=== PATIENT | male | born 1955 | race Two or more races ===

== ENCOUNTER 2017-04-17 13:17 | Inpatient (IN) | payer MEDICAID ==
[~2017-04-17] VITALS: Ht 167.6 cm; Wt 47.4 kg
[~2017-04-17 13:17] MED LIST: AMIN30LI27 PO; AMLO10TA2 PO; BLOO-129 IN; CALC-838 PO; CLON0.1T PO; DOCU-141 PO; DOXA4TAB2 PO; FERR325T24 PO; FOLI1TAB16 PO; GEL90GEL2 TP; GEMF600T3 PO; HYDR-4077 PO; HYDR-552 PO; INSU100V SQ; LATA2.5D2 EACHEYE; LEVO50TA8 PO; MEGE400O4 PO; MIRT45TA5 PO; OMEP40CA37 PO; TYL2T PO; VIT1TABL46 PO; VITA113.3 TP; ZINC30OI4 TP; [UNRECOGNIZED DRUG - CODE] PO
--- NOTE | 2017-04-17 13:35 | NUR ---
GUY TOMAS FROM [facility] FOR HYPOTENSION AND MORE ALTERED THAN USUAL. PATIENT IS CURRENTLY A/OX 1. BREATHING EVEN AND UNLABORED. NO SOB, NAD. SBP IN THE 90'S. PATIENT HAS HD CATH ON RCW. SAFETY AND COMFORT MEASURES IN PLACE, AT BEDSIDE FOR EVAL.
--- NOTE | 2017-04-17 13:40 | NUR ---
NEW IV STARTED ON LFA, 20 G. BLOOD DRAWN AND SENT TO LAB. IVF STARTED PER MD ORDERS.
[2017-04-17 13:44] LABS: BASOPHILS # (AUTO) 0.3 /CMM (0.0-0.2); BASOPHILS % (AUTO) 2.3 % (0.0-2.0); EOSINOPHILS % (AUTO) 0.3 % (0.0-6.0); HEMATOCRIT 33 % (39-51); HEMOGLOBIN 11.4 g/dL (13.5-17.5); LYMPHOCYTES # (AUTO) 1.7 /CMM (0.8-4.8); LYMPHOCYTES % (AUTO) 14.9 % (20.0-44.0); MEAN CORPUSCULAR HEMOGLOBIN 30 PG (26.0-33.0); MEAN CORPUSCULAR HGB CONC 35 g/dl (31.0-36.0); MEAN CORPUSCULAR VOLUME 87 fL (80-96); MONOCYTES # (AUTO) 0.5 /CMM (0.1-1.30); MONOCYTES % (AUTO) 4.3 % (2.0-12.0); NEUTROPHILS # (AUTO) 8.7 /CMM (1.8-8.9); NEUTROPHILS % (AUTO) 78.2 % (43.0-81.0); PLATELET COUNT (AUTO) 193 /CMM (150-450); RDW COEFFICIENT OF VARIATION 15.2 (11.5-15.0); RED BLOOD CELL COUNT(AUTO) 3.74 MIL/uL (4.5-6.0); WHITE BLOOD COUNT (AUTO) 11.2 K/uL (4.3-11.0)
--- NOTE | 2017-04-17 13:45 | NUR ---
QUALITY CONTROL CHECKER AT BEDSIDE.
[2017-04-17 13:53] LABS: CALCIUM, SERUM 10.8 mg/dL (8.5-10.1); CARBON DIOXIDE 25 mmol/L (21-32); CHLORIDE 105 mmol/L (98-107); CREATININE 2.9 mg/dL (0.6-1.3); GLUCOSE 94 mg/dL (74-106); SODIUM SERUM 138 mmol/L (136-145); UREA NITROGEN, BLOOD 15 mg/dL (7-18)
[2017-04-17 14:00] LABS: ALANINE AMINOTRANSFERASE 7 U/L (12-78); ALBUMIN 1.9 g/dL (3.4-5.0); ALKALINE PHOSPHATASE 80 U/L (46-116); ASPARTATE AMINOTRANSFERASE 15 U/L (15-37); BILIRUBIN,DIRECT 0.2 mg/dL (0.0-0.2); BILIRUBIN,TOTAL 0.4 mg/dL (0.2-1.0); TOTAL PROTEIN, SERUM 6.1 g/dL (6.4-8.2)
[2017-04-17] MEDS ORDERED: IV NS 0.9% 1,000 ML BAG IV ONE (14:00)
[2017-04-17 14:01] LABS: INR 1.64 (0.85-1.15); TROPONIN I < 0.017 ng/mL (0.00-0.056)
--- NOTE | 2017-04-17 14:33 | NUR ---
PATIENT DOES NOT PRODUCE URINE PER EMT UPON TRANSFER, AWARE, STATING NO NEED TO CATH PATIENT FOR URINE.
[2017-04-17] MEDS ORDERED: NA P133E33 RC (14:38)
[2017-04-17] MEDS ORDERED: POLY15DR40 EACHEYE (14:38)
[2017-04-17] MEDS ORDERED: BRIM5DRO EACHEYE (14:38)
[2017-04-17] MEDS ORDERED: CHOL50004 PO (14:38)
[2017-04-17] MEDS ORDERED: MELA3TAB PO (14:38)
[2017-04-17] MEDS ORDERED: NORT25CA5 PO (14:38)
[2017-04-17] MEDS ORDERED: SEVE800T8 PO (14:38)
[2017-04-17] MEDS ORDERED: LOPE2CAP40 PO (14:38)
[2017-04-17] MEDS ORDERED: VITA113.3 TP (14:40)
[2017-04-17] MEDS ORDERED: MENT113O6 TP (14:40)
[2017-04-17 15:13] LABS: APPEARANCE,URINE Clear (CLEAR); BILIRUBIN,URINE Negative (NEGATIVE); BLOOD, URINE Trace-lysed Ery/uL (NEGATIVE); COLOR,URINE Yellow (YELLOW); KETONES,URINE Negative (NEGATIVE); LEUKOCYTE ESTERASE ,URINE Small (NEGATIVE); NITRITE, URINE Negative (NEGATIVE); PROTEIN,URINE Negative (NEGATIVE); UGLUCOSE Negative (NEGATIVE); UROBILINOGEN,URINE 0.2 EU/dL (0.2)
[2017-04-17 15:35] LABS: BACTERIA,URINE Few /HPF (None Seen); SQUAMOUS EPITHELIAL CELL,UR Few /HPF (None Seen)
[2017-04-17] MEDS ORDERED: LEVOFLOXACIN 500 MG /D5W 100ML 500 MG/100 ML PIGGYBACK IV ONE (16:00)
[2017-04-17] MEDS ORDERED: LEVOFLOXACIN 500 MG /D5W 100ML 100 ML IV ONE (16:07)
--- NOTE | 2017-04-17 16:22 | NUR ---
TELE 325-2
--- NOTE | 2017-04-17 16:23 | NUR ---
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
--- NOTE | 2017-04-17 17:19 | NUR ---
REPORT GIVEN TO RNMACRINA FOR LUPE UPON ADMISSION. PATIENT GOING TO ROOM 326-2.
[2017-04-17] MEDS ORDERED: NA PHOS,M-B/NA PHOS,DI-BA 1 EA ENEMA RC PRN (17:30)
[2017-04-17] MEDS ORDERED: LOPERAMIDE HCL (2 MG CAP) 2 MG CAPSULE PO PRN (17:30)
[2017-04-17] MEDS ORDERED: CALCIUM CARBONATE 500 MG TAB.CHEW PO PRN (18:00)
[2017-04-17] MEDS: PROSOURCE / PROSTAT (PYXIS) 30 ML UDC PO SCH (18:00)
[2017-04-17] MEDS: BRIMONIDINE TARTRATE OPHT SOLN 5 ML BOTTLE EACHEYE SCH (18:00)
--- NOTE | 2017-04-17 18:04 | NUR ---
RN NOTE PATIENT RECEIVED FROM [facility]. PATIENT IS ALERT AND ORIENTED x1. NO FACIAL GRIMACING NOTED FOR PAIN. NO SOB OR DISTRESS NOTED. AWAITING MD ORDERS. PO MEDICATIONS HELD DUE TO POSSIBLE ASPIRATION FROM ALTERED MENTAL STATUS. WILL ENDORSE TO MOTORCYCLE BUILDER NURSE FOR LUPE Addendum: 04/17/17 at 1835 by MACRINA GREEN RN PATIENT MEDICATIONS HELD DUE TO RISK FOR ASPIRATION
[2017-04-17] MEDS: VITAMINS A AND D 56.7 GM TUBE TP SCH (18:08)
[2017-04-17] MEDS: POLYVINYL ALCOHOL 15 ML BOTTLE EACHEYE SCH (18:08)
--- NOTE | 2017-04-17 18:10 | NUR ---
PATIENT TRANSPORTED TO [facility] VIA ACLS PROTOCOL. RNMACRINA TO PROVIDE LUPE.
[2017-04-17] MEDS: CHOLECALCIFEROL 1,000 UNIT TABLET (VIT D3) PO SCH (18:30)
[2017-04-17 19:45] VITALS: BP 103/62
--- NOTE | 2017-04-17 19:45 | NUR ---
RN NOTES ADMITTED A 88 YEARS OLD MALE, PT WITH PRIMARY DIAGNOSIS OF SEPSIS UNDER DR SUTTON. PT IS ALERT AND ORIENTED X2, DENIES PAIN, NAUSEA AND VOMITING. VITAL SIGNS STABLE, BP AT LOW SIDE. PT IS BLIND ON BOTH EYES. SKIN AND BODY ASSESSMENT DONE WITH PICTURES TAKEN AND FILED IN THE CHART. PT IS CONTRACTED ON BOTH LOWER EXTREMITY WITH WEAKNESS ON LEFT SIDE. LISA CATH IN RIGHT UPPER CHEST WALL INTACT WITH DRESSING CLEAN AND DRY. IV ACCESS ON LEFT FORE ARM PATENT AND INTACT. PT IS ANGRY AND WITHDRAWN WHEN ASKS QUESTION. KEPT COMFORTABLE AND ATTENDED. SAFETY MEASURES AND FALL PRECAUTION OBSERVED WITH CALL LIGHT WITH IN REACH. WILL CONTINUE TO MONITOR PT.
[2017-04-17] MEDS ORDERED: LEVOFLOXACIN 500 MG /D5W 100ML 500 MG in PREMIX 1 EA IV ONE (20:00)
--- NOTE | 2017-04-17 20:00 | NUR ---
RN NOTES SCHEDULED LEVAQUIN 250 MG IVPB AT 2000 NOT ADMINISTERED. LEVAQUIN 500MG IN D5W IVPB GIVEN IN ER AT 1610.
[2017-04-17] MEDS: DOXAZOSIN MESYLATE (4 MG) 4 MG TABLET PO SCH (22:00)
[2017-04-17] MEDS: LATANOPROST EYE DROP 0.005% 2.5 ML BOTTLE EACHEYE SCH (22:34)
[2017-04-17] MEDS: NORTRIPTYLINE HCL 25 MG CAPSULE PO SCH (22:35)
[2017-04-18] VITALS: BP 107/69
[2017-04-18] MEDS ORDERED: ONDANSETRON HCL/PF 4 MG/2 ML VIAL IVP PRN
[2017-04-18] MEDS ORDERED: MAGNESIUM HYDROXIDE 30 ML UDC PO PRN
[2017-04-18] MEDS ORDERED: HYDROCODONE/APAP 5/325MG 1 EACH TABLET PO PRN
[2017-04-18] MEDS ORDERED: *INSULIN REGULAR(HUMULIN R)HUM 100 UNIT/ML VIAL SQ PRN
[2017-04-18] MEDS ORDERED: INSULIN REGULAR, HUMAN 100 UNIT/ML 3 ML VIAL SQ PRN
[2017-04-18] MEDS ORDERED: MAG HYDROX/AL HYDROX/SIMETH 30 ML UDC PO PRN
[2017-04-18] MEDS ORDERED: ACETAMINOPHEN 325 MG TABLET PO PRN
[2017-04-18] MEDS ORDERED: DEXTROSE 50%-WATER 50 ML DISP.SYRIN IV PRN
[2017-04-18] MEDS ORDERED: Z GUARD REMEDY 2 OZ OINT TP PRN
--- NOTE | 2017-04-18 01:20 | NUR ---
RN NOTES PT HEART RATE IN MONITOR IS AT 140'S, STAT EKG DONE. PT DENIES ANY PAIN, VERBALIZING HE'S COLD AND WANTS HIS HEAD COVERED WITH BLANKET. VITAL SIGNS BP 112/75, TEMP 98.7, RR18, BS 110MG/DL, O2SAT 95% AT ROOM AIR. WILL CONTINUE TO MONITOR.
--- NOTE | 2017-04-18 01:21 | NUR ---
RN NOTES DR SUTTON MADE AWARE WITH ORDER TO GIVE CARDIZEM 10MG IV Q6H PRN FOR HR >110. PT MADE AWARE. NOTED AND CARRIED OUT. WILL CONTINUE TO MONITOR PT.
[2017-04-18] MEDS ORDERED: DILTIAZEM HCL 25 MG IV ONE (01:47)
--- NOTE | 2017-04-18 01:50 | NUR ---
RN NOTES UNABLE TO SCAN VIAL OF CARDIZEM, DILTIAZEM HCL INJ 25MG/5ML VIAL TAKEN FROM [facility], 2 ML GIVEN TO THE PT IVP. WILL CONTINUE TO MONITOR PT.
[2017-04-18] MEDS ORDERED: DILTIAZEM HCL 50 MG IV IV PRN (02:00)
[2017-04-18] MEDS: LEVOTHYROXINE SODIUM 50 MCG TABLET PO SCH (06:48)
[2017-04-18] MEDS: BLOOD SUGAR DIAGNOSTIC 1 EACH STRIP VI SCH ×4 (06:50→21:51)
--- NOTE | 2017-04-18 07:00 | NUR ---
RN NOTES RECEIVED PATIENT IN BED ALERT ORIENTED X2. NO ACUTE DISTRESS NOTED. NO SOB NOTED. BREATHING UNLABORED. IV ACCESS PATENT AND INTACT, NO REDNESS OR SWELLING NOTED. RCW DIALYSIS ACCESS WITH DRESSING. HOB ELEVATED. SAFETY MEASURES IN PLACE. CALL LIGHT WITHIN REACH. WILL CONTINUE TO MONITOR ACCORDINGLY.
--- NOTE | 2017-04-18 07:30 | NUR ---
RN NOTES LATEST VITAL SIGNS TAKEN BP 90/64, HR 111, TEMP 98.6, RR 18, 02SAT 97% AT ROOM AIR, BS 108 MG/DL. TELEMONITOR READS SINUS TACH AT 112. PT EASILY AROUSABLE, DENIES PAIN, NAUSEA AND VOMITING. TURNED AND REPOSITIONED SCHEDULED Q2H. KEPT CLEAN AND DRY. SAFETY MEASURES AND FALL PRECAUTION OBSERVED. WILL ENDORSE TO MORNING RN FOR CONTINUITY OF CARE.
[2017-04-18 07:56] LABS: HEMATOCRIT 36 % (39-51); LYMPHOCYTES # (AUTO) 0.3 /CMM (0.8-4.8); LYMPHOCYTES % (AUTO) 1.1 % (20.0-44.0); MEAN CORPUSCULAR HEMOGLOBIN 30 PG (26.0-33.0); MEAN CORPUSCULAR HGB CONC 34 g/dl (31.0-36.0); MEAN CORPUSCULAR VOLUME 88 fL (80-96); MONOCYTES # (AUTO) 0.2 /CMM (0.1-1.30); MONOCYTES % (AUTO) 0.6 % (2.0-12.0); NEUTROPHILS # (AUTO) 27.6 /CMM (1.8-8.9); NEUTROPHILS % (AUTO) 98.3 % (43.0-81.0); PLATELET COUNT (AUTO) 200 /CMM (150-450); RDW COEFFICIENT OF VARIATION 16.1 (11.5-15.0); RED BLOOD CELL COUNT(AUTO) 4.06 MIL/uL (4.5-6.0); WHITE BLOOD COUNT (AUTO) 28.1 K/uL (4.3-11.0)
[2017-04-18 08:00] VITALS: BP 92/69
[2017-04-18 08:04] LABS: CALCIUM, SERUM 10.6 mg/dL (8.5-10.1); CREATININE 3.4 mg/dL (0.6-1.3); PHOSPHORUS 2.1 mg/dL (2.5-4.9); POTASSIUM 2.9 mmol/L (3.5-5.1)
[2017-04-18] MEDS: AMLODIPINE BESYLATE 10 MG TABLET PO SCH (09:00)
--- NOTE | 2017-04-18 09:00 | NUR ---
RN NOTES SEEN AND EVALUATED BY EDGARDO ROSENBAUM WITH NEW ORDERS MADE. NOTED AND CARRIED OUT.
[2017-04-18] MEDS: PROSOURCE / PROSTAT (PYXIS) 30 ML UDC PO SCH (09:28)
[2017-04-18] MEDS: POLYVINYL ALCOHOL 15 ML BOTTLE EACHEYE SCH ×3 (09:28→17:27)
[2017-04-18] MEDS: CHOLECALCIFEROL 1,000 UNIT TABLET (VIT D3) PO SCH (09:29)
[2017-04-18] MEDS: FERROUS SULFATE (325 MG) 325 MG/TAB TABLET PO SCH (09:29)
[2017-04-18] MEDS: FOLIC ACID 1 MG TABLET PO SCH (09:29)
[2017-04-18] MEDS: VIT B CMPLX 3/FA/VIT C/BIOTIN 1 TAB TABLET PO SCH (09:29)
[2017-04-18] MEDS: SEVELAMER CARBONATE 800 MG TABLET PO SCH ×2 (09:38→12:12)
[2017-04-18] MEDS: VITAMINS A AND D 56.7 GM TUBE TP SCH (09:49)
[2017-04-18 10:41] LABS: BAND % (MANUAL) 4 % (0.0-5.0); LYMPHOCYTES % (MANUAL) 3 % (16-48); MONOCYTES % (MANUAL) 1 % (0-11.0); NEUTROPHILS % (MANUAL) 92 (42-76)
[2017-04-18] MEDS: BRIMONIDINE TARTRATE OPHT SOLN 5 ML BOTTLE EACHEYE SCH ×2 (10:50→17:26)
[2017-04-18 12:00] VITALS: BP 105/76
[2017-04-18] MEDS: ASPIRIN EC 81 MG TABLET.DR PO SCH (12:12)
[2017-04-18] MEDS ORDERED: POTASSIUM PHOSPHATE MM 15 MMOL in IV D5W 250 ML IV SCH (13:00)
[2017-04-18] MEDS: POTASSIUM PHOSPHATE MM 7.5 MMOL in IV D5W 100 ML IV SCH ×2 (15:43→20:05)
[2017-04-18 16:00] VITALS: BP 100/70
[2017-04-18] MEDS ORDERED: DILTIAZEM HCL 25 MG IV IV PRN (16:13)
[2017-04-18] MEDS ORDERED: Medication Not On Formulary EA (Melatonin 3 MG) PO SCH (17:00)
[2017-04-18] MEDS: LEVOFLOXACIN 250 MG /D5W 50 ML 250 MG in PREMIX 1 EA IV SCH (18:53)
--- NOTE | 2017-04-18 19:00 | NUR ---
RN NOTES PATIENT IN BED ALERT ORIENTED X2, RESPOND TO QUESTIONS WITH YES OR NO. NO ACUTE DISTRESS NOTED. NO SOB NOTED. BREATHING UNLABORED. IV ACCESS PATENT AND INTACT, NO REDNESS OR SWELLING NOTED. RCW DIALYSIS ACCESS WITH DRESSING. DUE MEDICATIONS GIVEN, NO ASE NOTED. REFUSED ACCU CHECK BEFORE DINNER DESPITE OF EXPLANATION OF RISK AND BENEFITS. NEEDS ATTENDED. HOB ELEVATED. SAFETY MEASURES IN PLACE. CALL LIGHT WITHIN REACH. ENDORSED TO NIGHT NURSE FOR CONTINUITY OF CARE.
--- NOTE | 2017-04-18 19:30 | NUR ---
ELECTRIC METER TESTER SHOP NOTE RECEIVED PATIENT FROM DAY SHIFT, PATIENT IS ALERT AND ORIENTEDX2,BLIND, NO S/S OF RESPIRATORY DISTRESS OR PAIN AT THIS TIME. BOTH EYES ARE BLIND, CONTRACTED BLE WITH WEAKNESS NOTED. LISA CATH IN RIGHT UPPER CHEST WALL INTACT, DRESSING C/D/I. IV ON LEFT FA IS PATENT AND INTACT, HL ONLY. SRX2, BED IN LOW POSITION, CALL LIGHT WITHIN REACH, WILL CONTINUE TO MONITOR PATIENT.
[2017-04-18 20:00] VITALS: BP 87/59
[2017-04-18] MEDS ORDERED: LEVOFLOXACIN 250 MG /D5W 50 ML 250 MG in PREMIX 1 EA IV SCH (20:00)
[2017-04-18] MEDS: DOXAZOSIN MESYLATE (4 MG) 4 MG TABLET PO SCH (21:42)
[2017-04-18] MEDS: LATANOPROST EYE DROP 0.005% 2.5 ML BOTTLE EACHEYE SCH (21:46)
[2017-04-18] MEDS: NORTRIPTYLINE HCL 25 MG CAPSULE PO SCH (21:46)
[2017-04-19] VITALS (7 sets, daily range): BP systolic 8–104; BP diastolic 57–69
--- NOTE | 2017-04-19 06:36 | NUR ---
PART TIME NOTE PATIENT IS NONCOMPLIANT WITH ACCUCHECK, KEPT MOVING HIS ARMS, AND SAID 'NO.' WILL ENDORSE TO DAY SHIFT TO F/U.
--- NOTE | 2017-04-19 06:59 | NUR ---
MEDICAL INSURANCE VERIFIER NOTE PATIENT IS RESTING IN BED, GETTING HD AT THIS TIME. NO ACUTE DISTRESS NOTED THROUGHOUT THE SHIFT EXCEPT NONCOMPLIANCE OF MED. TELE MONITOR SR 63. WILL ENDORSE TO DAY SHIFT FOR LUPE.
[2017-04-19 07:25] LABS: BASOPHILS % (AUTO) 0.3 % (0.0-2.0); EOSINOPHILS # (AUTO) 0.1 /CMM (0.0-0.7); EOSINOPHILS % (AUTO) 0.7 % (0.0-6.0); HEMATOCRIT 27 % (39-51); LYMPHOCYTES # (AUTO) 1.9 /CMM (0.8-4.8); LYMPHOCYTES % (AUTO) 13.1 % (20.0-44.0); MEAN CORPUSCULAR HEMOGLOBIN 29 PG (26.0-33.0); MEAN CORPUSCULAR HGB CONC 34 g/dl (31.0-36.0); MEAN CORPUSCULAR VOLUME 88 fL (80-96); MONOCYTES # (AUTO) 0.7 /CMM (0.1-1.30); MONOCYTES % (AUTO) 4.8 % (2.0-12.0); NEUTROPHILS # (AUTO) 11.7 /CMM (1.8-8.9); NEUTROPHILS % (AUTO) 81.1 % (43.0-81.0); PLATELET COUNT (AUTO) 154 /CMM (150-450); RDW COEFFICIENT OF VARIATION 17.1 (11.5-15.0); RED BLOOD CELL COUNT(AUTO) 3.07 MIL/uL (4.5-6.0); WHITE BLOOD COUNT (AUTO) 14.4 K/uL (4.3-11.0)
[2017-04-19] MEDS: BLOOD SUGAR DIAGNOSTIC 1 EACH STRIP VI SCH ×4 (07:30→22:00)
[2017-04-19 07:32] LABS: CALCIUM, SERUM 9.1 mg/dL (8.5-10.1); CREATININE 3.2 mg/dL (0.6-1.3); POTASSIUM 3.3 mmol/L (3.5-5.1)
[2017-04-19] MEDS ORDERED: ALBUMIN 25% 25 GM in PREMIX 1 EA IV PRN (08:00)
--- NOTE | 2017-04-19 08:25 | NUR ---
TELEHEALTH CASE MANAGER/OPENING NOTES RECEIVED PT. IN BED A&OX2, RECEIVING HEMODIALYSIS. PT. IS BLIND IN BOTH EYES. BREATHING UNLABORED, AND EVENLY ON ROOM AIR. NO S/S 0F ACUTE DISTRESS. ALBUMIN WAS GIVEN, AND IV FLUIDS. BED IS IN LOWEST, AND LOCKED POSITION. 2 SIDE RAILS UP. CALL LIGHT IS WITHIN REACH, AND ALL NEEDS MET. WILL CONTINUE TO ASSESS AND MONITOR.
[2017-04-19] MEDS: PROSOURCE / PROSTAT (PYXIS) 30 ML UDC PO SCH (09:00)
[2017-04-19] MEDS: AMLODIPINE BESYLATE 10 MG TABLET PO SCH (09:00)
--- NOTE | 2017-04-19 09:00 | NUR ---
RN NOTES PT. RECEIVED HEMODIALYSIS AND WAS GIVEN AN ADDITIONAL 600 CC OF NORMAL SALINE IV FLUIDS DUE TO PT.'S LOW BLOOD PRESSURE ON HD. VITAL'S POST DIALYSIS BP 116/74, PULE 70, TEMP. 97.5.
[2017-04-19] MEDS: VITAMINS A AND D 56.7 GM TUBE TP SCH (10:13)
[2017-04-19] MEDS: POLYVINYL ALCOHOL 15 ML BOTTLE EACHEYE SCH ×3 (10:13→17:21)
[2017-04-19] MEDS: BRIMONIDINE TARTRATE OPHT SOLN 5 ML BOTTLE EACHEYE SCH ×2 (10:13→17:21)
[2017-04-19] MEDS: LEVOTHYROXINE SODIUM 50 MCG TABLET PO SCH (10:14)
[2017-04-19] MEDS: VIT B CMPLX 3/FA/VIT C/BIOTIN 1 TAB TABLET PO SCH (10:15)
[2017-04-19] MEDS: FERROUS SULFATE (325 MG) 325 MG/TAB TABLET PO SCH (10:15)
[2017-04-19] MEDS: FOLIC ACID 1 MG TABLET PO SCH (10:15)
[2017-04-19] MEDS: FAMOTIDINE (20 MG) 20 MG TABLET PO SCH (10:16)
[2017-04-19] MEDS: ASPIRIN EC 81 MG TABLET.DR PO SCH (10:16)
[2017-04-19] MEDS: CHOLECALCIFEROL 1,000 UNIT TABLET (VIT D3) PO SCH (10:16)
[2017-04-19] MEDS: LEVOFLOXACIN 250 MG /D5W 50 ML 250 MG in PREMIX 1 EA IV SCH (18:37)
--- NOTE | 2017-04-19 19:25 | NUR ---
RN CLOSING NOTES PT. IS IN BED A&OX2, PT. IS BLIND IN BOTH EYES. BREATHING UNLABORED, AND EVENLY ON ROOM AIR. NO S/S 0F ACUTE DISTRESS. IV ANTIBIOTICS RUNNING. BED IS IN LOWEST, AND LOCKED POSITION. 2 SIDE RAILS UP. CALL LIGHT IS WITHIN REACH, AND ALL NEEDS MET. WILL ENDORSE REPORT TO NURSE.
--- NOTE | 2017-04-19 19:35 | NUR ---
MS RN OPENING NOTES RECEIVED PT IN BED ALERT, AWAKE,VERBALLY RESPONSIVE.ON ROOM AIR, RESPIRATIONS EVEN, UNLABORED, NO APPARENT DISTRESS NOTED. DENIES ANY PAIN OR DISCOMFORT AT THIS TIME. IV SITE LFA INTACT, PATENT. CALL LIGHT WITHIN REACH. ATTENDED ALL NEEDS. BED LOCKED IN LOWEST POSITION. WILL CONTINUE TO MONITOR ACCORDINGLY.
[2017-04-19] MEDS: NORTRIPTYLINE HCL 25 MG CAPSULE PO SCH (21:54)
[2017-04-19] MEDS: DOXAZOSIN MESYLATE (4 MG) 4 MG TABLET PO SCH (21:54)
[2017-04-19] MEDS: LATANOPROST EYE DROP 0.005% 2.5 ML BOTTLE EACHEYE SCH (22:00)
--- NOTE | 2017-04-19 22:00 | NUR ---
MS RN NOTE PT REFUSED ACCU CHECK OFFERED X3 EXPLAINED BENEFITS, REFUSED. ALERT, AWAKE, VERBALLY RESPONSIVE, DENIES ANY DISCOMFORT AT THIS TIME. WILL CONTINUE TO MONITOR.
[2017-04-20] MEDS: BLOOD SUGAR DIAGNOSTIC 1 EACH STRIP VI SCH ×3 (06:08→17:02)
--- NOTE | 2017-04-20 06:41 | NUR ---
MS RN CLOSING NOTES PT IN BED AWAKE, VERBALLY RESPONSIVE, DENIES ANY PAIN OR DISCOMFORT AT THIS TIME. RESPIRATIONS EVEN, UNLABORED. REFUSED ACCU CHECK, OFFERED X3 EXPLAINED BENEFITS, REFUSED. CALL LIGHT WITHIN REACH. ATTENDED ALL NEEDS. WILL CONTINUE TO MONITOR.
--- NOTE | 2017-04-20 07:15 | NUR ---
RN NOTES PT IS LAYING DOWN IN BED, SHEETS OVER HIS FACE, RESTING. PT ON RA, RESPIRATIONS ARE EVEN AND UNLABORED. IV ON LFA INTACT AND SL. SAFETY MEASURES ARE IN PLACE, CALL LIGHT IS IN REACH. WILL CONTINUE TO MONITOR.
[2017-04-20 08:00] VITALS: BP 102/65
[2017-04-20] MEDS: POLYVINYL ALCOHOL 15 ML BOTTLE EACHEYE SCH ×3 (08:30→16:58)
[2017-04-20] MEDS: BRIMONIDINE TARTRATE OPHT SOLN 5 ML BOTTLE EACHEYE SCH ×2 (08:30→16:58)
[2017-04-20] MEDS: CHOLECALCIFEROL 1,000 UNIT TABLET (VIT D3) PO SCH (08:30)
[2017-04-20] MEDS: PROSOURCE / PROSTAT (PYXIS) 30 ML UDC PO SCH (08:30)
[2017-04-20] MEDS: LEVOTHYROXINE SODIUM 50 MCG TABLET PO SCH (08:30)
[2017-04-20] MEDS: ASPIRIN EC 81 MG TABLET.DR PO SCH (08:30)
[2017-04-20] MEDS: FOLIC ACID 1 MG TABLET PO SCH (08:30)
[2017-04-20] MEDS: FERROUS SULFATE (325 MG) 325 MG/TAB TABLET PO SCH (08:31)
[2017-04-20] MEDS: VIT B CMPLX 3/FA/VIT C/BIOTIN 1 TAB TABLET PO SCH (08:31)
[2017-04-20] MEDS: FAMOTIDINE (20 MG) 20 MG TABLET PO SCH (08:31)
[2017-04-20] MEDS: VITAMINS A AND D 56.7 GM TUBE TP SCH (08:31)
[2017-04-20] MEDS: AMLODIPINE BESYLATE 10 MG TABLET PO SCH (08:31)
[2017-04-20] MEDS ORDERED: LEVO500T75 PO (15:06)
[2017-04-20] MEDS ORDERED: ASPI-1152 PO (15:06)
[2017-04-20 16:00] VITALS: BP 130/79
--- NOTE | 2017-04-20 17:46 | NUR ---
RN NOTES PT IS WAITING TO BE DISCHARGED TO [facility], TRANSPORT BY AMBULANCE. DISCHARGE PAPERS WERE SIGNED AND BELONGINGS WERE RETURNED. [facility] WAS CALLED AND REPORT GIVEN TO JOE, THE NURSE. NEW PRESCRIPTION INSTRUCTIONS WERE GIVEN TO JOE. ANTIBIOTIC DOSE FOR TONIGHT WAS GIVEN PRIOR TO DISCHARGE. PT ON RA, RESPIRATIONS ARE EVEN AND UNLABORED. LAST ACCUCHECK WAS 97, NO COVERAGE NEEDED. WILL ENDORSE TO [employer] EMISSIONS AUTOMOTIVE TECHNICIAN RN FOR CONTINUITY OF CARE.
[2017-04-20] MEDS ORDERED: LEVOFLOXACIN 250 MG /D5W 50 ML 250 MG in PREMIX 1 EA IV SCH (18:00)
--- NOTE | 2017-04-20 19:10 | NUR ---
RN NOTES PT WAS DISCHARGED TO [facility] IN STABLE CONDITION, ACCOMPANIED BY EMT'S IN AMBULANCE. IV AND ID BAND WERE REMOVED. BELONGINGS WERE RETURNED TO PT AND DISCHARGE PAPERS WERE PROVIDED. SPOKE WITH NURSE AT THE FACILITY WHO GOT REPORT. VITAL SIGNS ARE WNL. NO SIGNS OF DISTRESS NOTED.
== END 2017-04-20 19:00 | DRG 463 ==
LOC: ER 13:18 → TELE 16:44 → MED 04-19 20:15
PROVIDERS: ADMIT Internal Medicine; ATTEND Internal Medicine
PROC: 5A1D70Z Performance of Urinary Filtration, Intermittent, Less than 6 Hours Per Day (ICD-10-PCS; principal; 2017-04-19)
DX: N39.0 Urinary tract infection, site not specified (principal); G92 Toxic encephalopathy; I13.2 Hypertensive heart and chronic kidney disease with heart failure and with stage 5 chronic kidney disease, or end stage renal disease; E43 Unspecified severe protein-calorie malnutrition; L89.220 Pressure ulcer of left hip, unstageable; R53.2 Functional quadriplegia; N18.6 End stage renal disease; D68.59 Other primary thrombophilia; E11.22 Type 2 diabetes mellitus with diabetic chronic kidney disease; E83.39 Other disorders of phosphorus metabolism; I50.9 Heart failure, unspecified; D63.8 Anemia in other chronic diseases classified elsewhere; E03.9 Hypothyroidism, unspecified; E78.5 Hyperlipidemia, unspecified; E87.6 Hypokalemia; F32.9 Major depressive disorder, single episode, unspecified; F41.9 Anxiety disorder, unspecified; K21.9 Gastro-esophageal reflux disease without esophagitis; Z86.73 Personal history of transient ischemic attack (TIA), and cerebral infarction without residual deficits; Z99.2 Dependence on renal dialysis; E88.09 Other disorders of plasma-protein metabolism, not elsewhere classified; H40.9 Unspecified glaucoma; H26.9 Unspecified cataract; L89.610 Pressure ulcer of right heel, unstageable; L89.510 Pressure ulcer of right ankle, unstageable; E83.9 Disorder of mineral metabolism, unspecified; Z68.1 Body mass index [BMI] 19.9 or less, adult; Z88.0 Allergy status to penicillin
CPT/HCPCS: 36415; 70450-TC; 71045-TC; 80048-TC; 80076-TC; 81000-TC; 82962-TC; 83605-TC; 83735-TC; 84100-TC; 84484-TC; 85025-TC; 85730-TC; 87040-TC; 87081-TC; 90935-TC; A4216; A4606; J1815; J1956; J3490; J7030; J7050; J7060; P9047; Z7610